=== PATIENT | female | born 1990 | race Caucasian/White ===

== ENCOUNTER → 2016-12-24 | Outpatient (REF) | payer OTHER ==
[~2016-12-24] MED LIST: FERR325T3 PO; IBUP1TAB7 PO; PRENTAB55 PO; TYLE325T5 PO
== END ==
LOC: M SFHCLERA 17:45
PROVIDERS: ATTEND Family Medicine
DX: D22.72 Melanocytic nevi of left lower limb, including hip (principal)

== ENCOUNTER → 2017-07-22 | Outpatient (REF) | payer OTHER ==
[2017-07-22 18:26] LABS: BASO % 0.4 % (0.0-1.0); EOS # 0.1 10^3/uL (0.0-0.50); EOS % 0.6 % (0.0-3.0); HEMOGLOBIN 12.8 g/dl (12.0-15.5); IMMATURE GRANULOCYTE % 0.1 % (0-3.0); LYMPH # 2.9 10^3/uL (1.5-6.5); LYMPH % 34.6 % (24.0-44.0); MEAN CORPUSCULAR HEMOGLOBIN 28.6 pg (27.0-33.0); MEAN CORPUSCULAR HGB CONC 32.8 g/dl (32.0-36.5); MEAN CORPUSCULAR VOLUME 87.1 fl (80.0-96.0); MONO # 0.6 10^3/uL (0.0-0.8); MONO % 7.6 % (0.0-5.0); NEUTROPHILS # 4.8 10^3/uL (1.8-7.7); NEUTROPHILS % 56.7 % (36.0-66.0); PLATELET COUNT, AUTOMATED 365 10^3/uL (150-450); RED BLOOD COUNT 4.48 10^6/uL (4.00-5.40); RED CELL DISTRIBUTION WIDTH 13.2 % (11.5-14.5); WHITE BLOOD COUNT 8.5 10^3/uL (4.0-10.0)
[2017-07-22 18:48] LABS: ESTIMATED AVERAGE GLUCOSE 100 MG/DL (60-110); HEMOGLOBIN A1c 5.1 %
[2017-07-22 18:57] LABS: ALBUMIN 4.3 GM/DL (3.2-5.2); ALBUMIN/GLOBULIN RATIO 1.39 (1.00-1.93); ALKALINE PHOSPHATASE 58 U/L (45-117); ALT/SGPT 17 U/L (12-78); ANION GAP 6 MEQ/L (8-16); AST/SGOT 11 U/L (7-37); BILIRUBIN,TOTAL 0.3 MG/DL (0.2-1.0); BLOOD UREA NITROGEN 11 MG/DL (7-18); CALCIUM LEVEL 9.2 MG/DL (8.5-10.1); CARBON DIOXIDE LEVEL 29 MEQ/L (21-32); CHLORIDE LEVEL 106 MEQ/L (98-107); FREE T4 0.91 NG/DL (0.76-1.46); GLOMERULAR FILTRATION RATE > 60.0 (>60); GLUCOSE, FASTING 70 MG/DL (70-100); POTASSIUM SERUM 4.2 MEQ/L (3.5-5.1); SODIUM LEVEL 141 MEQ/L (136-145); THYROID STIMULATING HORMONE 0.651 uIU/ML (0.358-3.740); TOTAL PROTEIN 7.4 GM/DL (6.4-8.2)
== END ==
LOC: M SFHCLERA 10:36
DX: R42 Dizziness and giddiness (principal)

== ENCOUNTER → 2017-10-22 | Outpatient (REF) | payer OTHER ==
[2017-10-22 13:37] LABS: HEMATOCRIT 40.5 % (36.0-47.0); HEMOGLOBIN 14.1 g/dl (12.0-15.5); MEAN CORPUSCULAR HEMOGLOBIN 29.8 pg (27.0-33.0); MEAN CORPUSCULAR HGB CONC 34.8 g/dl (32.0-36.5); MEAN CORPUSCULAR VOLUME 85.6 fl (80.0-96.0); PLATELET COUNT, AUTOMATED 337 10^3/uL (150-450); RED BLOOD COUNT 4.73 10^6/uL (4.00-5.40); RED CELL DISTRIBUTION WIDTH 12.7 % (11.5-14.5); WHITE BLOOD COUNT 8.6 10^3/uL (4.0-10.0)
[2017-10-22 14:14] LABS: HCG, SERUM QUANTITATIVE 54025 MIU/ML
[2017-10-22 14:27] LABS: RUBELLA IgG QUALITATIVE IMMUNE (IMMUNE)
[2017-10-22 14:28] LABS: HBsAg Prenatal NEGATIVE (NEGATIVE)
[2017-10-22 14:57] LABS: HIV 1&2 SCREEN CENTAUR NEGATIVE (NEGATIVE)
== END ==
LOC: M LAB REF 13:05
DX: Z32.01 Encounter for pregnancy test, result positive (principal); O36.80X0 Pregnancy with inconclusive fetal viability, not applicable or unspecified

== ENCOUNTER → 2018-03-09 | Outpatient (CLI) | payer BC, MEDICAID ==
[2018-03-09 20:35] LABS: HEMATOCRIT 33.2 % (36.0-47.0); MEAN CORPUSCULAR HEMOGLOBIN 29.3 pg (27.0-33.0); MEAN CORPUSCULAR HGB CONC 33.1 g/dl (32.0-36.5); MEAN CORPUSCULAR VOLUME 88.5 fl (80.0-96.0); PLATELET COUNT, AUTOMATED 254 10^3/uL (150-450); RED BLOOD COUNT 3.75 10^6/uL (4.00-5.40); WHITE BLOOD COUNT 12.6 10^3/uL (4.0-10.0)
== END ==
LOC: M LRY 14:09
PROVIDERS: ATTEND Obstetrics & Gynecology
DX: Z34.82 Encounter for supervision of other normal pregnancy, second trimester (principal)

== ENCOUNTER → 2018-03-18 | Outpatient (CLI) | payer BC | LOC: M LAB 07:56 | PROVIDERS: ATTEND Obstetrics & Gynecology | DX: R73.02 Impaired glucose tolerance (oral) (principal) ==

== ENCOUNTER → 2018-05-10 | Outpatient (REF) | payer BC | LOC: M LAB REF 17:16 | PROVIDERS: ATTEND Obstetrics & Gynecology | DX: Z34.83 Encounter for supervision of other normal pregnancy, third trimester (principal); Z3A.00 Weeks of gestation of pregnancy not specified ==

== ENCOUNTER 2018-06-09 12:18 | Inpatient (IN) | payer BC, MEDICAID ==
[2018-06-09] VITALS (10 sets, daily range): BP systolic 125–175; BP diastolic 60–98
[~2018-06-09] VITALS: Ht 162.6 cm; Wt 69.4 kg
[2018-06-09] MEDS ORDERED: LACTATED RINGER'S 1000 ML IV STA (12:30)
[2018-06-09] MEDS ORDERED: LR 1,000 ML IV SCH (12:30)
[2018-06-09 14:03] LABS: HEMATOCRIT 34.7 % (36.0-47.0); HEMOGLOBIN 11.8 g/dl (12.0-15.5); MEAN CORPUSCULAR HEMOGLOBIN 28.9 pg (27.0-33.0); MEAN CORPUSCULAR VOLUME 84.8 fl (80.0-96.0); PLATELET COUNT, AUTOMATED 257 10^3/uL (150-450); RED BLOOD COUNT 4.09 10^6/uL (4.00-5.40); WHITE BLOOD COUNT 13.2 10^3/uL (4.0-10.0)
[2018-06-09] MEDS ORDERED: ACETAMINOPHEN TAB 650MG DOSE (2X325MG) PO ONE (17:00)
[2018-06-09 17:19] LABS: ALT/SGPT 20 U/L (12-78); BILIRUBIN,TOTAL 0.2 MG/DL (0.2-1.0); CREATININE FOR GFR 0.48 MG/DL (0.55-1.30); GLOMERULAR FILTRATION RATE > 60.0 (>60); LDH LACTATE DEHYDROGENASE 187 U/L (84-246); URIC ACID 4.8 MG/DL (2.6-6.0)
[2018-06-09] MEDS ORDERED: OXYTOCIN 30 UNITS IN 0.9% NaCl 500ML IV BAG (J2590) As Ordered ONE (19:34)
[2018-06-09] MEDS ORDERED: OXYTOCIN DRIP 30 UNITS in APPROPRIATE DILUENT 1 EA IV SCH (21:11)
[2018-06-09] MEDS ORDERED: MEASLES,MUMPS,RUBELLA VACCINE INJ (MMR-II) (90707) SC SCH (21:15)
[2018-06-09] MEDS ORDERED: ACETAMINOPHEN 500 MG TAB PO PRN (21:15)
[2018-06-09] MEDS ORDERED: LIDOCAINE 1% MDV 20ML VIAL INFIL ONE (21:15)
[2018-06-09] MEDS ORDERED: RHOGAM 300 MCG (1500 IU) INJ (J2790) IM SCH (21:15)
[2018-06-09] MEDS ORDERED: IBUPROFEN 800 MG TAB PO PRN (21:15)
[2018-06-09] MEDS ORDERED: METHYLERGONOVINE MALEATE 0.2 MG TAB PO PRN (21:15)
[2018-06-09] MEDS ORDERED: DIBUCAINE 1% OINTMENT 30GM TOP PRN (21:15)
[2018-06-09] MEDS ORDERED: DOCUSATE SODIUM 100 MG CAP PO PRN (21:15)
[2018-06-09 21:27] LABS: CORD GAS ABE A -5.7; CORD GAS ABE V -6.8; CORD GAS HCO3 A 21.7 MEQ/L; CORD GAS O2 SAT A 54.1 %; CORD GAS O2 SAT V 67.6 %; CORD GAS PCO2 A 49.3 mmHg; CORD GAS PCO2 V 34.7 mmHg; CORD GAS PH A 7.262 UNITS; CORD GAS PH V 7.334 UNITS; CORD GAS PO2 A 25.7 mmHg; CORD GAS PO2 V 30.2 mmHg; CORD GAS SBC A 18.8 MEQ/L; CORD GAS SBC V 18.3 MEQ/L; CORD GAS TCO2 A 23.2 MEQ/L; CORD GAS TCO2 V 19.1 MEQ/L
--- NOTE | 2018-06-09 21:49 | HPE ---
DATE OF ADMISSION: 06/09/2018 Terri is a 26-year-old female, 2, para 1-0-0-1 with an estimated date of confinement (EDC) of 06/07/2018, estimated gestational age (EGA) 40-2/7 weeks gestation with an unstable life who is being admitted for an induction. Upon admission, a bedside ultrasound was done, which confirmed vertex, and cervix was found to be 1-2 cm dilated. Her record reviewed, which was essentially unremarkable. LABORATORY: Blood type is B positive, rubella immune, hepatitis negative, HIV negative, GC and chlamydia negative. One-hour sugar testing was within normal limits. Her GBS was negative. PAST MEDICAL HISTORY: Denies. PAST SURGICAL HISTORY: 1. [place] tooth extraction. 2. Lesion removal of the skin. SOCIAL HISTORY: She is . Denies any alcohol, drugs, or cigarette smoking. REVIEW OF SYSTEMS: Unremarkable. MEDICATIONS: vitamins, iron pills. ALLERGIES: PENICILLIN. PHYSICAL EXAMINATION: Normal-appearing female in no acute distress. ABDOMEN: Soft, nontender, nondistended. EXTREMITIES: No clubbing, cyanosis or edema. Tracing reviewed: Category 1 tracing. ASSESSMENT: Intrauterine at 40-2/7 weeks gestation with an unstable , currently in vertex position, being admitted for induction. PLAN: Admit to labor and delivery. Routine labs sent. Pain management discussed. The patient up for nothing at this point. Will continue to monitor. Anticipate delivery.
--- NOTE | 2018-06-10 02:42 | DN ---
DATE OF DELIVERY: 06/09/2018 Terri is a 27-year-old female, 2, para 1-0-0-1, who was admitted at 40-2/7 weeks gestation for an induction. She underwent artificial rupture of membranes. She then went into spontaneous labor and delivered a live female infant in left occiput anterior position. scores 9, 9. weight 7 pounds 12 ounces. Placenta delivered spontaneously, intact. Three-vessel cord. Perineum, vagina, cervix inspected. First-degree midline perineal laceration noted, which was repaired using #2-0 chromic. Estimated blood loss 200 mL. Both mother and baby in stable condition. Edited: [facility] 06/12/2018 [id number]
[2018-06-10 06:10] VITALS: BP 116/74
[2018-06-10] MEDS: PRENATAL VITAMINS CHEWABLE TABLET PO SCH (08:07)
[2018-06-10 18:00] VITALS: BP 123/78
[2018-06-11 06:00] VITALS: BP 103/59
[2018-06-11] MEDS: PRENATAL VITAMINS CHEWABLE TABLET PO SCH (09:00)
[2018-06-11] MEDS ORDERED: IBUP-1114 PO (10:02)
[2018-06-11] MEDS ORDERED: MAPA500T2 PO (10:02)
== END 2018-06-11 12:35 | disposition home or self-care (01) | DRG 560 ==
LOC: M LDI 12:18 → M OBS 23:07
PROVIDERS: ADMIT Obstetrics & Gynecology; ATTEND Obstetrics & Gynecology
PROC: 10E0XZZ Delivery of Products of Conception, External Approach (ICD-10-PCS; principal; 2018-06-09)
PROC: 0HQ9XZZ Repair Perineum Skin, External Approach (ICD-10-PCS; 2018-06-09)
PROC: 10907ZC Drainage of Amniotic Fluid, Therapeutic from Products of Conception, Via Natural or Artificial Opening (ICD-10-PCS; 2018-06-09)
DX: O32.0XX0 Maternal care for unstable lie, not applicable or unspecified (principal); Z3A.40 40 weeks gestation of pregnancy; O48.0 Post-term pregnancy; Z88.0 Allergy status to penicillin; O70.0 First degree perineal laceration during delivery; Z37.0 Single live birth